=== PATIENT | male | born 1970 | race Caucasian/White ===

== ENCOUNTER → 2021-09-08 08:36 | Outpatient (CLI) | payer BC, SELFPAY ==
--- NOTE | ~2021-09-08 | XR_ITS ---
EXAMINATION: XR chest 2V EXAM DATE: 09/08/2021 08:54 INDICATION: Acute bronchitis TECHNIQUE: Frontal and lateral projections of the chest obtained and reviewed. There is no prior brett dy for comparison. FINDINGS: The lungs are clear. There are no pleural effusions. The cardiomediastinal silhouette is within normal limits. There is no pneumothorax suspected. The bones and soft tissues are unremarkab le. IMPRESSION: No acute cardiopulmonary findings. Reviewed, dictated and finalized at location A.
== END ==
PROVIDERS: PCP Internal Medicine; Visit Provider Internal Medicine
DX: J20.9 Acute bronchitis, unspecified (principal)
CPT/HCPCS: 71046

== ENCOUNTER 2022-07-05 16:13 | Emergency (ER) | payer OTHER, SELFPAY ==
[2022-07-05 16:26] VITALS: BP 149/94; PULSE 77; RESP 20; TEMP 37.2; O2SAT 99
--- NOTE | 2022-07-05 17:10 | ED.URI ---
HPI - URI/Sore Throat General Chief Complaint: Upper Respiratory Infection Stated Complaint: Sore Throat Time Seen by Provider: 07/05/22 17:10 Source: patient, RN notes reviewed and old records reviewed Mode of arrival: ambulatory Limitations: no limitations History of Present Illness HPI Narrative: 52 year old male who presents to [facility] with complaints of 2 day history of cough, sore throat. Patient states he has been taking Tylenol cold and flu and also ibuprofen for his discomfort. Patient reports son tested positive to strep this afternoon.Patient has been COVID vaccinated and also has had fu shot. MD elicited complaint: sore throat, rhinorrhea and nasal congestion Onset (ago): day(s) (2) Pain scale (0-10): 3 Able to tolerate fluids by mouth: Yes Treatments prior to arrival: ibuprofen and other (Tylenol cold and flu) Related Data Home Medications Medication Instructions Recorded Confirmed losartan 50 mg tablet 50 mg PO DAILY 07/05/22 07/05/22 Allergies Allergy/AdvReac Type Severity Reaction Status Date / Time No Known Allergies Allergy Verified 07/05/22 16:45 Review of Systems Review of Systems: CONSTITUTIONAL: Reports malaise, chills, sweats, or fever. EYES: Denies visual changes, redness, or discharge. ENT: Reports rhinorrhea, congestion, sinus pain, otalgia, positive for sore throat. CARDIOVASCULAR: Denies chest pain, palpitations, or edema. RESPIRATORY: Reports cough.? Denies dyspnea. GASTROINTESTINAL: Denies abdominal pain, nausea, vomiting, diarrhea SKIN: Denies rash or itching. MUSCULOSKELETAL: Reports myalgia and achy joints. NEUROLOGIC: Denies headache. All systems reviewed & are unremarkable except as noted in HPI and below PMFSH Past Medical History Medical History (Updated 07/07/22 @ 08:09 by Renetta Ascencio NP) Hypertension Social History Social History (Updated 07/07/22 @ 08:09 by Renetta Ascencio NP) Smoking status: Never smoker Alcohol intake: current Alcohol use details: social Substance use type: does not use Living arrangements: with family Gender identity (if verbalized by the patient): Male Comments At time of signature, agree with nursing past medical, surgical, social and family history. There is no relevant family history pertinent to the presenting complaint Exam Narrative: GENERAL: Well-appearing, well-nourished, and in no acute distress. HEAD: Normocephalic EYES: PERRLA, conjunctivae clear ENT: Nares clear, turbinates edematous and erythematous, clear discharge. Mucous membranes moist. TM pearly jennings with dull light reflex bilaterally; no tragal tenderness. Oropharynx erythematous without lesions. Tonsils red and enlarged and without exudate, no drooling, no hoarseness, no trismus, uvula midline.painful swallowing positive exposure to strep. NECK: Supple. No lymphadenopathy CHEST: Clear to auscultation, breath sounds equal. No wheezing, rhonchi, rales, or stridor. No respiratory distress, speaks in full sentences.dry cough SAO2 99% on room air HEART: Regular rate and rhythm. No murmur heard. SKIN: Warm, dry, no rash. NEURO: Alert and oriented x3. PSYCH: Normal mood and affect Course Course Emergency Course: Patient is aware of diagnosis, understands and agrees to treatment plan.? Anticipatory guidance given.? Patient agrees to follow-up as directed and is aware of reasons to seek care at the emergency department. Portions of this record may have been created with voice recognition software Level of Care: Express Care Visit Vital Signs Vital signs: Vital Signs Temperature 37.2 C 07/05/22 16:26 Pulse Rate 77 07/05/22 16:26 Respiratory Rate 07/05/22 16:26 Blood Pressure 149/94 H 07/05/22 16:26 Pulse Oximetry 99 07/05/22 16:26 Oxygen Delivery Room Air 07/05/22 16:26 Temperature 37.2 C 07/05/22 16:26 Pulse Rate 77 07/05/22 16:26 Respiratory Rate 20 07/05/22 16:26 Blood Press
== END 2022-07-05 17:25 | disposition home or self-care (01) ==
PROVIDERS: Emergency Provider Registered Nurse; PCP Internal Medicine
DX: J03.90 Acute tonsillitis, unspecified (principal); I10 Essential (primary) hypertension
CPT/HCPCS: 87081; 87880; 99213; G0463

== ENCOUNTER 2022-10-16 08:17 | Emergency (ER) | payer OTHER, SELFPAY ==
[2022-10-16 08:24] VITALS: BP 138/98; PULSE 77; RESP 20; TEMP 36.6; O2SAT 100
--- NOTE | 2022-10-16 08:40 | ED.URI ---
HPI - URI/Sore Throat General Chief Complaint: Upper Respiratory Infection Stated Complaint: Sore Throat/Body Aches Source: patient and RN notes reviewed History of Present Illness HPI Narrative: 52 yo M presents to urgent care with complaints of post-nasal drip, sore throat, and some congestion x 3 days. Pt reports waking up with some body aches this morning. Pt denies any fevers, chills, chest pain, SOB, N/V/D. Pt has taken ibuprofen at home for his symptoms. Related Data Home Medications Medication Instructions Recorded Confirmed losartan 50 mg tablet 50 mg PO DAILY 07/05/22 10/16/22 Allergies Allergy/AdvReac Type Severity Reaction Status Date / Time No Known Allergies Allergy Verified 07/05/22 16:45 Review of Systems Review of Systems: Pertinent positives and pertinent negatives per HPI. [facility] Past Medical History Medical History (Updated 10/16/22 @ 08:46 by Kinga Stovall, JACQUELINE) Hypertension Social History Social History (Updated 07/07/22 @ 08:09 by Renetta Ascencio NP) Smoking status: Never smoker Alcohol intake: current Alcohol use details: social Substance use type: does not use Living arrangements: with family Gender identity (if verbalized by the patient): Male Comments At the time of my signature, I reviewed and agree with the nursing past medical, surgical, social, and family history. There is no relevant family history pertinent to the patient complaint. Exam Narrative: GENERAL: This is a well-nourished, well-developed patient, in no apparent distress. HEAD: normocephalic, atraumatic. EYES: Sclera clear/white. Vision is grossly intact. EARS: External ears normal, auditory canals clear and without drainage, TMs normal without perforation. Hearing grossly intact. NOSE: External nose normal with no obvious nasal discharge, nares without redness, no rhinorrhea. THROAT: Mucous membranes moist, posterior pharynx clear. NECK: Neck supple, non-tender without lymphadenopathy, masses or thyromegaly. CARDIOVASCULAR: Regular rate and rhythm without murmurs, gallops, or rubs. RESPIRATORY: Clear to auscultation. Breath sounds equal bilaterally. No wheezes, rales, or rhonchi. SKIN: warm, intact with no suspicious lesions or rash, good texture and turgor. NEURO: awake, alert, and oriented to person, place and time. There were no obvious focal neurologic abnormalities. Course Course Level of Care: Express Care Visit Vital Signs Vital signs: Vital Signs Temperature 98 F 10/16/22 08:24 Pulse Rate 77 10/16/22 08:24 Respiratory Rate 20 10/16/22 08:24 Blood Pressure 138/98 H 10/16/22 08:24 Pulse Oximetry 100 10/16/22 08:24 Oxygen Delivery Room Air 10/16/22 08:24 Temperature 98 F 10/16/22 08:24 Pulse Rate 77 10/16/22 08:24 Respiratory Rate 20 10/16/22 08:24 Blood Pressure 138/98 H 10/16/22 08:24 Pulse Oximetry 100 10/16/22 08:24 Oxygen Delivery Room Air 10/16/22 08:24 Reviewed MDM - URI/Sore Throat MDM Narrative Medical decision making narrative: Viral illness may last between 7-12days; antibiotic is NOT recommended at this time. Recommend antihistamine such as Benadryl at night time and Claritin/Zyrtec/Alie during the day. Increase your Vitamin C intake. Use inhaler as needed for cough, wheezing, shortness of breath or chest tightness. Also, recommend symptomatic treatment includes: rest, fluids, increase humidity of the air at home with a humidifier in the bedroom. Recommend Acetaminophen or nonsteroidal anti-inflammatory agents(NSAIDs) as directed in the bottle to reduce fever and/pain/headache. Avoid smoking/second-hand smoke. Frequent hand washing or hand international marketing specialist is one of the best ways to prevent spread of infection. Differential Diagnosis Differential diagnosis: Likely upper respiratory infection, viral infection and pharyngitis Lab Data Attestation: I reviewed the patient's lab results. Labs: Strep Screen
== END 2022-10-16 08:48 | disposition home or self-care (01) ==
PROVIDERS: Emergency Provider Nurse Practitioner Family; PCP Internal Medicine
DX: J06.9 Acute upper respiratory infection, unspecified (principal); I10 Essential (primary) hypertension
CPT/HCPCS: 87081; 87880; 99213; G0463